=== PATIENT | female | born 1965 | race Caucasian/White ===

== ENCOUNTER 2017-12-15 14:43 | Emergency (ER) | payer OTHER ==
[~2017-12-15 14:43] MED LIST: ALPRAZOLAM1 MG PO; BENZONATATE200 M1 PO; CYCLOBENZAPRINE10 M1 PO; DIPHENHYDRAMINE25 M4 PO; FLEXERIL 5MG TAB5 MG PO; FLUOXETINE HYDR40 MG PO; GOLYTELY 40004000 ML PO; HYDROXYZINE HCL50 M1 PO; KEFLEX500 M1 PO; MEDROL4 M2 PO; PAIN RELIEF EX500 MG PO; PATANOL5 ML OPH; PAXIL10 MG PO; PERCOCET 5-3251 EACH PO; PREDNISONE50 M1 PO; REQUIP3 M1 PO; ROPINIROLE HCL1 MG PO; ROPINIROLE HYDRO1 MG PO; SEROQUEL (MONO200 MG PO; SEROQUEL 100MG100 MG PO; SEROQUEL XR300 MG PO; TRAMADOL50 MG PO; TYLENOL #31 TAB PO; TYLENOL WITH C1 EACH PO; TYLENOL XSTR500 MG PO; VIBRAMYCIN 100100 MG PO; VITAMIN D250000 UNIT PO; ZITHROMAX250 M2 PO
[2017-12-15 16:01] VITALS: BP 158/66
[2017-12-15] MEDS ORDERED: PREDNISONE10 M2 PO (16:15)
--- NOTE | 2017-12-15 16:16 | ED GENERAL ADULT ---
History of Present Illness General Chief Complaint: Eye Problems Stated Complaint: "POISON KENNY IN MY EYE" Source: patient Exam Limitations: no limitations Vital Signs & Intake/Output Vital Signs & Intake/Output Vital Signs Date Time Temp Pulse Resp B/P B/P Pulse O2 O2 Flow FiO2 Mean Ox Delivery Rate 12/15 1601 97.8 84 18 158/66 100 Room Air 12/15 1555 Room Air Allergies Coded Allergies: aspirin (HIVES 11/22/17) hydrocodone (GI UPSET PER PT 11/22/17) ibuprofen (HIVES 11/22/17) Reconcile Medications Acetaminophen (Pain Relief Extra Strength) 500 MG TABLET 2 TAB PO PRN PAIN ( Reported) Azithromycin (Zithromax) 250 MG TABLET 1 DP PO AD bronchitis 2 the first day followed by 1 for days 2-5 Benzonatate 200 MG CAPSULE 1 CAP PO TIDPRN cough Cephalexin (Keflex) 500 MG CAPSULE 1 CAP PO TID CELLULITIS Cyclobenzaprine HCl 10 MG TABLET 1 TAB PO TID SPASMS Cyclobenzaprine HCl 10 MG TABLET 1 TAB PO TID SPASMS Diphenhydramine HCl 25 MG CAPSULE 1 CAP PO QPM SLEEP (Reported) Ergocalciferol (Vitamin D2) (Vitamin D2) 50,000 UNIT CAPSULE 1 CAP PO QTHURS SUPPLEMENT (Reported) Prednisone 50 MG TABLET 1 TAB PO DAILY bronchitis Prednisone 10 MG TABLET 1 TAB PO DAILY poison kenny Ropinirole HCl 1 MG TABLET 1 TAB PO QPM RLS (Reported) Triage Note: PT WAS GARDENING WHEN SHE GOT POSION KENNY IN HER EYE. PT EYE NOT RED AND SWOLLEN BUT PT C/O OF PAIN. PT ALSO C/O OF SPIDER BITE THAT SHE HAS HAD FOR 1 MO AND STILL HAS HOLE IN LEFT LEG. Triage Nurses Notes Reviewed? yes Onset: Gradual Duration: day(s): Timing: constant HPI: 52 y/o female with h/o migraines, anxiety, insomnia, PTSD presenting with self reported poison kenny to her right face/eye and bilateral wrists, which she contracted a few days ago. Reports that she was gardening with her neighbor, and he touched her with a poisin kenny plant on her wrists. The pt then accidentally touched her right face/eye. Has rash to her wrists, but no rash noted to her face or eye. States that her eye is extremely pruritic. Reports that the last time she had poison kenny in her eye/face that she did not develop a rash either, but got better with steroids. Denies fever. Denies visual changes or occular discharge. Normally wears glasses, but does not have them with her. Past History Travel History Traveled to [place] past 21 day No Medical History Any Pertinent Medical History? see below for history Neurological: migraine EENT: NONE Cardiovascular: NONE Respiratory: NONE Gastrointestinal: ABDOMINAL HERNIA Hepatic: NONE Renal: NONE Musculoskeletal: NONE Psychiatric: anxiety, insomnia, PTSD suicide attempt Endocrine: NONE Blood Disorders: NONE Cancer(s): NONE EMT B/Reproductive: NONE Surgical History Surgical History: non-contributory Psychosocial History Who do you live with Patient/Self What is your primary language Bermudian Tobacco Use: Current Daily Use Daily Tobacco Use Amount/Type: => 5 Cigarettes daily Family History Hx Contributory? No Review of Systems Review of Systems Constitutional: Reports: no symptoms. EENTM: Reports: see HPI. Respiratory: Reports: no symptoms. Cardiovascular: Reports: no symptoms. GI: Reports: no symptoms. Genitourinary: Reports: no symptoms. Musculoskeletal: Reports: no symptoms. Skin: Reports: see HPI. Neurological/Psychological: Reports: no symptoms. Hematologic/Endocrine: Reports: no symptoms. Immunologic/Allergic: Reports: no symptoms. All Other Systems: Reviewed and Negative Physical Exam Physical Exam General Appearance: well developed/nourished, no apparent distress, alert, awake , comfortable Head: atraumatic, normal appearance Eyes: Bilateral: normal appearance, PERRL. Ears, Nose, Throat: no rash to face, and right eye appears normal with white sclera and pink conjuncrtiva. VA 20/30 bilaterally, which she states is her basline without her glasses. Neck: normal inspection Respiratory: normal breath sounds, lungs clear Cardiovascular: regular rate/rhythm Gastrointestinal: soft, non-tender Back: normal inspection Extremities: vesicular rash on an erythematous base to the dorsum of bilateral wrists. Neurologic/Psych: awake, alert, oriented x 3, normal gait, normal mood/affect Skin: intact, normal color, warm/dry Comments: VA left 20/50 VA right 20/30 Core Measures ACS in differential dx? No CVA/TIA Diagnosis: No Sepsis Present: No Sepsis Focused Exam Completed? No Progress Differential Diagnoses I considered the following diagnoses in my evaluation of the patient: [plant dermatitis vs contact dermatitis vs viral, low concern for conjunctivitis vs episcleritis vs uveitis] Plan of Care: Low concern that pt contracted poison kenny on the face/eye given benign exam. Pt is insistent that she will not get better without steroids. Given full prednisone course for plant dermatitis. Will use topical hydrocortisone for her wrists. Will use benadryl prn. Counseled on supportive care, will f/u with her PMD, and given strict return precautions. Initial ED EKG: none Departure Departure Disposition: HOME OR SELF CARE Condition: Stable Clinical Impression Primary Impression: Poison kenny Referrals: Mary Carmona MD (PCP/Family) Additional Instructions: Take prednisone as prescribed. Use [id number] hydrocortisone to your arms and hands, do not use on your face. Use Benadryl as needed for itching. Follow -up with your primary care provider for reevaluation. Return to the emergency department for any new or worsening symptoms. Departure Forms: Customer Survey General Discharge Information Prescriptions: Current Visit Scripts Prednisone 1 TAB PO DAILY #91 TAB Critical Care Note Critical Care Note Critical Care Time: non-applicable
[2017-12-28] MEDS ORDERED: TYLENOL WITH C1 EACH PO (16:54)
== END 2017-12-15 16:18 ==
LOC: ERH 14:43
DX: L23.7 Allergic contact dermatitis due to plants, except food (principal)

== ENCOUNTER 2018-02-19 14:35 | Emergency (ER) | payer OTHER ==
[~2018-02-19] VITALS: Ht 162.6 cm; Wt 68.0 kg
[~2018-02-19 14:35] MED LIST changes: +PREDNISONE10 M2 PO
--- NOTE | 2018-02-19 15:25 | RADIOLOGY REPORT ---
EXAMINATION: XR CALCANEUS, LEFT XR LEFT ANKLE CLINICAL INFORMATION: Pain COMPARISON: None TECHNIQUE: Lateral and axial views of the left calcaneus were obtained. 3 views of the left ankle FINDINGS: The bones and soft tissues are normal. No fracture. Alignment is anatomic. The ankle mortise is intact. Joint spaces are maintained. No enthesopathic spurs are evident at the calcaneus. IMPRESSION: No fracture or dislocation.
[2018-02-19 16:23] VITALS: BP 119/68
--- NOTE | 2018-02-19 16:23 | ED ANKLE/FOOT INJURY COMPLAINT ---
History of Present Illness General Chief Complaint: Lower Extremity Problems Stated Complaint: LEFT ANKLE PAIN Source: patient Exam Limitations: no limitations Vital Signs & Intake/Output Vital Signs & Intake/Output Vital Signs Date Time Temp Pulse Resp B/P B/P Pulse O2 O2 Flow FiO2 Mean Ox Delivery Rate 02/19 1623 97.8 75 20 119/68 98 Room Air 02/19 1446 97.7 101 20 112/78 97 Room Air Allergies Coded Allergies: aspirin (HIVES 02/19/18) hydrocodone (GI UPSET PER PT 02/19/18) ibuprofen (HIVES 02/19/18) Reconcile Medications Acetaminophen (Pain Relief Extra Strength) 500 MG TABLET 2 TAB PO PRN PAIN ( Reported) Azithromycin (Zithromax) 250 MG TABLET 1 DP PO AD bronchitis 2 the first day followed by 1 for days 2-5 Benzonatate 200 MG CAPSULE 1 CAP PO TIDPRN cough Cephalexin (Keflex) 500 MG CAPSULE 1 CAP PO TID CELLULITIS Cyclobenzaprine HCl 10 MG TABLET 1 TAB PO TID SPASMS Cyclobenzaprine HCl 10 MG TABLET 1 TAB PO TID SPASMS Diphenhydramine HCl 25 MG CAPSULE 1 CAP PO QPM SLEEP (Reported) Ergocalciferol (Vitamin D2) (Vitamin D2) 50,000 UNIT CAPSULE 1 CAP PO QTHURS SUPPLEMENT (Reported) Prednisone 50 MG TABLET 1 TAB PO DAILY bronchitis Prednisone 10 MG TABLET 1 TAB PO DAILY poison mike Ropinirole HCl 1 MG TABLET 1 TAB PO QPM RLS (Reported) Tylenol With Codeine (Tylenol With Codeine #3 Tablet) 300 MG-30 MG TABLET 1-2 TAB PO BIDP PRN PAIN Tylenol With Codeine (Tylenol With Codeine #3 Tablet) 300 MG-30 MG TABLET 1 TAB PO BIDP PRN pain Triage Note: PT TO ER C/C PAIN/SWELLING TO L ANKLE/HEEL/FOOT AREA SINCE TRIPPING AND ALMOST FALLING ON MONDAY. YOVANI PAPPAS EVALUATED PATIENT AT TRIAGE. Triage Nurses Notes Reviewed? yes Duration: day(s):, constant Timing: recent history Severity: mild, moderate Pain/Injury Location: Left: Foot, Ankle. No Modifying Factors: none HPI: 53-year-old female comes into the emergency room for further evaluation of left ankle pain. Patient reports that she hit the back of her ankle going down the steps the other day. She's had pain since then. Associated swelling. she comes in for further evaluation. Past History Travel History Traveled to [place] past 21 day No Medical History Any Pertinent Medical History? see below for history Neurological: migraine EENT: NONE Cardiovascular: NONE Respiratory: NONE Gastrointestinal: ABDOMINAL HERNIA Hepatic: NONE Renal: NONE Musculoskeletal: NONE Psychiatric: anxiety, insomnia, PTSD suicide attempt Endocrine: NONE Blood Disorders: NONE Cancer(s): NONE RESIDENTIAL APPRAISER/Reproductive: NONE Surgical History Surgical History: non-contributory Psychosocial History Who do you live with Patient/Self What is your primary language Sierra Leonean Tobacco Use: Current Daily Use Daily Tobacco Use Amount/Type: => 5 Cigarettes daily ETOH Use: denies use Illicit Drug Use: denies illicit drug use Family History Hx Contributory? No Review of Systems Review of Systems Constitutional: Reports: no symptoms. EENTM: Reports: no symptoms. Respiratory: Reports: no symptoms. Cardiovascular: Reports: no symptoms. GI: Reports: no symptoms. Genitourinary: Reports: no symptoms. Musculoskeletal: Reports: see HPI. Skin: Reports: no symptoms. Neurological/Psychological: Reports: no symptoms. Hematologic/Endocrine: Reports: no symptoms. Immunologic/Allergic: Reports: no symptoms. All Other Systems: Reviewed and Negative Physical Exam Physical Exam General Appearance: well developed/nourished, mild distress Head: atraumatic Eyes: Bilateral: normal appearance. Ears, Nose, Throat: normal ENT inspection, hearing grossly normal Neck: normal inspection Cardiovascular/Respiratory: no respiratory distress Back: normal inspection Leg/Knee/Thigh Left: normal inspection Ankle Left: soft tissue tenderness, swelling (mild ), limited range of motion, knapp test intact, tenderness over achilles tendon Neuro/Vascular: normal motor function, normal sensation, abnormal cap refill Tendon: normal tendon function Psychiatric: awake, alert, oriented x 3 Skin: intact, normal color, warm/dry Progress Differential Diagnosis: fracture, dislocation, sprain, contusion, achilles tendon rupture Plan of Care: 02/19/2018 4:53:25 PM Patient clinically looks well. No apparent distress. No evidence of fracture. Departure Departure Disposition: HOME OR SELF CARE Condition: Stable Clinical Impression Primary Impression: Injury of left Achilles tendon Referrals: Mathew DELGADO,Mary (PCP/Family) Additional Instructions: Follow-up with orthopedic doctor. Stay in boot. Return if any other concerns worsening symptoms. Please go over all results of today's visit with your primary care doctor. Contact your primary care doctor to let them know you were here in the emergency room. There may be nonspecific findings which may not be related to your visit today here in the emergency room but may require further evaluation and chronic monitoring by your primary care doctor. If you had a laceration today the chance of foreign body always remains. You should follow-up with your primary care doctor for recheck in 3-5 days for a wound check. If you had an x-ray done there is a chance that a fracture could have been missed on initial read and you should follow-up with your primary care doctor for repeat x-rays if symptoms persist. If your blood pressure was elevated here in the emergency room please have rechecked by dora primary care doctor within the next 48. If you were prescribed a narcotic here in the emergency room or any type of controlled substances you're not allowed to drive while taking this medication or operate any type of heavy machinery. Narcotics can make you feel lightheaded dizziness nausea and can cause constipation. You may need to fruit or nut picker a stool softener. Thank you for choosing [facility] emergency room. Please return to the emergency room immediately if you have any other concerns worsening of symptoms. Departure Forms: Customer Survey General Discharge Information Prescriptions: Current Visit Scripts Tylenol With Codeine (Tylenol With Codeine #3 Tablet) 1-2 TAB PO BIDP PRN PAIN #12 TAB
[2018-02-19] MEDS ORDERED: TYLENOL WITH C1 EACH PO (16:37)
== END 2018-02-19 16:48 ==
LOC: ERH 14:35
DX: S86.002A Unspecified injury of left Achilles tendon, initial encounter (principal); F17.210 Nicotine dependence, cigarettes, uncomplicated; W22.8XXA Striking against or struck by other objects, initial encounter; Y93.01 Activity, walking, marching and hiking
CPT/HCPCS: 73610-LT; 73650-LT